=== PATIENT | male | born 1955 | race Hispanic/Latino ===

== ENCOUNTER 2020-11-09 19:16 | Inpatient (IN) | payer OTHER ==
[~2020-11-09] VITALS: Ht 172.7 cm; Wt 112.4 kg
[2020-11-09 20:03] LABS: BASOPHILS % (AUTO) 0.6 % (0.0-5.0); EOSINOPHILS % (AUTO) 2.4 % (0.0-8.0); HEMATOCRIT 26.3 % (42-54); LYMPHOCYTES % (AUTO) 21.8 % (21.0-51.0); MEAN CORPUSCULAR HEMOGLOBIN 21.7 pg (27.0-33.0); MEAN CORPUSCULAR HGB CONC 29.3 g/dL (32.0-36.0); MEAN CORPUSCULAR VOLUME 74.1 fL (79-99); NEUTROPHILS % (AUTO) 66.9 % (40.0-77.0); PLATELET COUNT (AUTO) 311 K/uL (130-400); RED BLOOD CELL COUNT(AUTO) 3.55 MIL/uL (4.50-6.20); WHITE BLOOD COUNT (AUTO) 6.8 K/uL (4.8-10.8)
[2020-11-09 20:08] LABS: CREATININE 2.2 mg/dL (0.5-1.5); POTASSIUM 3.6 mmol/L (3.5-5.1)
[2020-11-09] MEDS ORDERED: PANTOPRAZOLE 40 MG/VIAL ONE (20:09)
[2020-11-09] MEDS ORDERED: 0.9%NACL 100ML 100 ML IV ONE (20:09)
[2020-11-09 20:13] LABS: BILIRUBIN,TOTAL 0.1 mg/dL (0.2-1.0); TOTAL PROTEIN, SERUM 7.2 g/dL (6.0-8.3)
[2020-11-09 20:27] LABS: APPEARANCE,URINE Clear (CLEAR); BILIRUBIN,URINE Negative (NEGATIVE); COLOR,URINE Yellow (YELLOW); GLUCOSE, URINE (UA) >=1000 mg/dL (NEGATIVE); KETONES,URINE Negative (NEGATIVE); LEUKOCYTE ESTERASE ,URINE Negative (NEGATIVE); NITRATE,URINE Negative (NEGATIVE); OCCULT BLOOD,URINE Negative (NEGATIVE); PROTEIN,URINE 300 mg/dL (NEGATIVE); UROBILINOGEN,URINE 0.2 mg/dL (0.2-1.0)
[2020-11-09 20:28] LABS: INR 1.02 (0.85-1.15); PROTHROMBIN TIME 10.9 SEC (9.6-11.6)
[2020-11-09 20:30] LABS: PARTIAL THROMBOPLASTIN TIME 27.4 SEC (26.3-35.5)
[2020-11-09 20:41] LABS: BACTERIA,URINE Rare /HPF (None Seen); MUCUS,URINE Few LPF (None Seen); RBC,URINE 0-1 /HPF (0-1); SQUAMOUS EPITHELIAL CELL,UR Rare /HPF (0-2); WBC,URINE 0-1 /HPF (0-1)
[2020-11-09] MEDS ORDERED: 0.9%NACL 1000ML 1,000 ML IV SCH (21:00)
[2020-11-09] MEDS ORDERED: MORPHINE 2 MG SYG IV PRN (21:00)
[2020-11-09] MEDS ORDERED: DiphenhydrAMINE HCL 50 MG/ML VIAL IV PRN (21:00)
[2020-11-09] MEDS ORDERED: ONDANSETRON 4MG INJ IV PRN (21:00)
[2020-11-09] MEDS ORDERED: PANTOPRAZOLE 40 MG/VIAL IVP SCH (21:00)
[2020-11-09 21:16] LABS: HEMATOCRIT 24.6 % (42-54)
[2020-11-09 21:30] LABS: HEMOGLOBIN A1C 9.1 % (4.0-6.0)
[2020-11-09 23:40] VITALS: BP 143/49
[2020-11-10] MEDS ORDERED: AMLO-258 PO (01:19)
[2020-11-10] MEDS ORDERED: HYDR-4154 PO (01:19)
[2020-11-10] MEDS ORDERED: ATOR40TA71 PO (01:19)
[2020-11-10] MEDS ORDERED: FINA1TAB13 PO (01:19)
[2020-11-10] MEDS ORDERED: EMPA10TA PO (01:19)
[2020-11-10] MEDS ORDERED: FENO145T26 PO (01:19)
[2020-11-10] MEDS ORDERED: GABA300S PO (01:19)
[2020-11-10] MEDS ORDERED: METF-446 PO (01:19)
[2020-11-10] MEDS ORDERED: LOSA100T58 PO (01:19)
[2020-11-10] MEDS ORDERED: TAMS-1 PO (01:19)
[2020-11-10] MEDS ORDERED: OMEP40CA21 PO (01:19)
[2020-11-10 03:03] LABS: HEMATOCRIT 21.9 % (42-54)
[2020-11-10 03:09] LABS: CREATININE 1.9 mg/dL (0.5-1.5); MAGNESIUM 1.9 mg/dL (1.80-2.40); POTASSIUM 3.6 mmol/L (3.5-5.1)
[2020-11-10 03:39] VITALS: BP 138/44
[2020-11-10] MEDS ORDERED: 0.9% NACL 250ML 250 ML IV ONE (03:52)
[2020-11-10] MEDS: INSULIN HUMULIN R 100 UNIT/ML 3ML SQ SCH ×4 (06:07→20:55)
[2020-11-10 07:15] VITALS: BP 141/51
[2020-11-10 08:50] LABS: HEMATOCRIT 26.8 % (42-54)
[2020-11-10] MEDS ORDERED: PANTOPRAZOLE 40MG INJ 80 MG in 0.9%NACL 100ML 100 ML IV SCH (09:00)
[2020-11-10 11:15] VITALS: BP 148/65
[2020-11-10 15:11] LABS: HEMATOCRIT 30.3 % (42-54)
[2020-11-10 16:00] VITALS: BP 176/60
[2020-11-10] MEDS ORDERED: LIDOCAINE HCL-MPF 1% 2ML VIAL IV PRN (18:30)
[2020-11-10] MEDS ORDERED: POTASSIUM CHLORIDE 10% ELIXIR 20 MEQ/15 ML UDCUP PO PRN (18:30)
[2020-11-10] MEDS ORDERED: MAGNESIUM 2GM PREMIX 50ML 50 ML IV PRN (18:30)
[2020-11-10] MEDS ORDERED: POTASSIUM CHLORIDE 20MEQ/100ML 100 ML IV PRN (18:30)
[2020-11-10 20:00] VITALS: BP 177/54
[2020-11-11] VITALS (18 sets, daily range): BP systolic 138–188; BP diastolic 46–79
[2020-11-11 05:24] LABS: BASOPHILS % (AUTO) 0.7 % (0.0-5.0); EOSINOPHILS % (AUTO) 2.6 % (0.0-8.0); LYMPHOCYTES % (AUTO) 20.9 % (21.0-51.0); MEAN CORPUSCULAR HEMOGLOBIN 22.4 pg (27.0-33.0); MEAN CORPUSCULAR VOLUME 74.8 fL (79-99); MONOCYTES % (AUTO) 7.8 % (3.0-13.0); NEUTROPHILS % (AUTO) 67.7 % (40.0-77.0); PLATELET COUNT (AUTO) 239 K/uL (130-400); RED BLOOD CELL COUNT(AUTO) 3.61 MIL/uL (4.50-6.20); RED CELL DISTRIBUTION WIDTH 16.8 % (11.0-15.5); WHITE BLOOD COUNT (AUTO) 5.8 K/uL (4.8-10.8)
[2020-11-11 06:21] LABS: ALANINE AMINOTRANSFERASE 28 U/L (12-78); ALBUMIN 2.5 g/dL (3.5-5.0); ASPARTATE AMINOTRANSFERASE 27 U/L (10-37); CARBON DIOXIDE 28 mmol/L (21-32); CHLORIDE 106 mmol/L (101-111); CREATININE 1.6 mg/dL (0.5-1.5); GLOMERULAR FILTR. RATE CALC 46 mL/min (>60); GLUCOSE,RANDOM 148 mg/dL (70-105); PHOSPHORUS 3.5 mg/dL (2.5-4.9); POTASSIUM 3.4 mmol/L (3.5-5.1); SODIUM SERUM 144 mmol/L (136-145); TOTAL PROTEIN, SERUM 6.2 g/dL (6.0-8.3); UREA NITROGEN, BLOOD 24 mg/dL (7-18)
[2020-11-11 06:26] LABS: BILIRUBIN,TOTAL < 0.1 mg/dL (0.2-1.0)
[2020-11-11] MEDS: INSULIN HUMULIN R 100 UNIT/ML 3ML SQ SCH ×4 (06:37→21:00)
[2020-11-11] MEDS ORDERED: PROPOFOL 10 MG/ML 20ML VIAL IV ONE ×2 (11:25→11:31)
[2020-11-11] MEDS ORDERED: LIDOCAINE HCL 1% 20 ML VIAL ONE (11:25)
[2020-11-11] MEDS ORDERED: PEG 3350/NA SULF,BICARB,CL/KCL 4000 ML SOLN PO SCH (17:00)
[2020-11-11] MEDS: HYDRALAZINE 25MG TABLET PO SCH (17:50)
[2020-11-11] MEDS ORDERED: CLONIDINE HCL 0.1 MG TABLET ONE (20:43)
[2020-11-11] MEDS ORDERED: HYDRALAZINE 20MG/ML VIAL IV PRN (20:45)
[2020-11-11] MEDS ORDERED: CLONIDINE HCL 0.1 MG TABLET PO PRN (20:45)
[2020-11-11] MEDS ORDERED: GABAPENTIN 300 MG CAPSULE PO SCH (21:00)
[2020-11-11] MEDS: KCL 20 MEQ ERTAB PO PRN (23:49)
[2020-11-12] VITALS (17 sets, daily range): BP systolic 137–198; BP diastolic 49–77
[2020-11-12] MEDS: KCL 20 MEQ ERTAB PO PRN (02:54)
[2020-11-12 06:09] LABS: BASOPHILS % (AUTO) 0.7 % (0.0-5.0); EOSINOPHILS % (AUTO) 2.5 % (0.0-8.0); HEMATOCRIT 32.5 % (42-54); LYMPHOCYTES % (AUTO) 19.7 % (21.0-51.0); MEAN CORPUSCULAR HEMOGLOBIN 22.4 pg (27.0-33.0); MEAN CORPUSCULAR HGB CONC 29.8 g/dL (32.0-36.0); MEAN CORPUSCULAR VOLUME 75.1 fL (79-99); MONOCYTES % (AUTO) 6.8 % (3.0-13.0); NEUTROPHILS % (AUTO) 70.1 % (40.0-77.0); PLATELET COUNT (AUTO) 303 K/uL (130-400); RED BLOOD CELL COUNT(AUTO) 4.33 MIL/uL (4.50-6.20)
[2020-11-12 06:18] LABS: ALBUMIN 2.8 g/dL (3.5-5.0); BILIRUBIN,TOTAL 0.3 mg/dL (0.2-1.0); CREATININE 1.6 mg/dL (0.5-1.5); PHOSPHORUS 3.2 mg/dL (2.5-4.9); POTASSIUM 3.9 mmol/L (3.5-5.1); TOTAL PROTEIN, SERUM 6.9 g/dL (6.0-8.3)
[2020-11-12] MEDS: INSULIN HUMULIN R 100 UNIT/ML 3ML SQ SCH ×2 (06:41→11:30)
[2020-11-12] MEDS ORDERED: 0.9%NACL 1000ML 1,000 ML IV ONE (06:51)
[2020-11-12] MEDS ORDERED: PROPOFOL 10 MG/ML 20ML VIAL IV ONE (07:25)
[2020-11-12] MEDS ORDERED: FENOFIBRATE NANOCRYSTALLIZED 145 MG TAB PO SCH (08:00)
[2020-11-12] MEDS ORDERED: ATORVASTATIN 40 MG TABLET PO SCH (09:00)
[2020-11-12] MEDS ORDERED: AMLODIPINE 5 MG TAB PO SCH (09:00)
[2020-11-12] MEDS ORDERED: FINASTERIDE 1 MG PO SCH (09:00)
[2020-11-12] MEDS ORDERED: LOSARTAN 100 MG TABLET PO SCH (09:00)
[2020-11-12] MEDS ORDERED: TAMSULOSIN HCL 0.4 MG CAP.ER.24H PO SCH (09:00)
[2020-11-12] MEDS: HYDRALAZINE 25MG TABLET PO SCH ×2 (09:55→12:43)
== END 2020-11-12 18:30 | disposition home or self-care (01) | DRG 378 ==
LOC: EDH 19:16 → EDHIP 20:55 → 3BH 23:01
PROVIDERS: ADMIT Internal Medicine Critical Care Medicine; ATTEND Internal Medicine Critical Care Medicine
PROC: 0DB68ZX Excision of Stomach, Via Natural or Artificial Opening Endoscopic, Diagnostic (ICD-10-PCS; principal; 2020-11-11)
PROC: 0W3P8ZZ Control Bleeding in Gastrointestinal Tract, Via Natural or Artificial Opening Endoscopic (ICD-10-PCS; 2020-11-11)
PROC: 0DBK8ZZ Excision of Ascending Colon, Via Natural or Artificial Opening Endoscopic (ICD-10-PCS; 2020-11-12)
PROC: 0DBL8ZZ Excision of Transverse Colon, Via Natural or Artificial Opening Endoscopic (ICD-10-PCS; 2020-11-12)
PROC: 0DBM8ZZ Excision of Descending Colon, Via Natural or Artificial Opening Endoscopic (ICD-10-PCS; 2020-11-12)
PROC: 0DBH8ZZ Excision of Cecum, Via Natural or Artificial Opening Endoscopic (ICD-10-PCS; 2020-11-12)
PROC: 30233N1 Transfusion of Nonautologous Red Blood Cells into Peripheral Vein, Percutaneous Approach (ICD-10-PCS; 2020-11-12)
DX: K31.811 Angiodysplasia of stomach and duodenum with bleeding (principal); D62 Acute posthemorrhagic anemia; I50.32 Chronic diastolic (congestive) heart failure; K63.5 Polyp of colon; E11.40 Type 2 diabetes mellitus with diabetic neuropathy, unspecified; E78.5 Hyperlipidemia, unspecified; I11.0 Hypertensive heart disease with heart failure; I25.10 Atherosclerotic heart disease of native coronary artery without angina pectoris; N40.0 Benign prostatic hyperplasia without lower urinary tract symptoms; Z20.822 Contact with and (suspected) exposure to COVID-19; Z79.4 Long term (current) use of insulin; Z95.1 Presence of aortocoronary bypass graft; Z79.899 Other long term (current) drug therapy; K29.71 Gastritis, unspecified, with bleeding
CPT/HCPCS: 36415; 36430; 43239; 43255; 45381; 45385; 45388; 71045; 80048; 80053; 81001; 82270; 82948; 83036; 83690; 83735; 83880; 84100; 84484; 85014; 85018; 85025; 85610; 85730; 86850; 86900; 86901; 86923; 87426; 88305; 88342; 93005; 99291; A4606; C9113; G0378; J2704; J7030; J7050; P9016; U0003

== ENCOUNTER → 2021-12-31 | Outpatient (CLI) | payer OTHER ==
[~2021-12-31] MED LIST: AMLO-258 PO; ATOR40TA71 PO; EMPA10TA PO; FENO145T26 PO; FINA1TAB13 PO; GABA300S PO; HYDR-4154 PO; LOSA100T58 PO; METF-446 PO; OMEP40CA21 PO; TAMS-1 PO
== END | disposition home or self-care (01) ==
LOC: RAH 10:37
PROVIDERS: ATTEND Internal Medicine
DX: N18.9 Chronic kidney disease, unspecified (principal); N28.1 Cyst of kidney, acquired
CPT/HCPCS: 76770

== ENCOUNTER → 2022-01-13 | Outpatient (CLI) | payer OTHER | END | disposition home or self-care (01) | LOC: RAH 10:44 | PROVIDERS: ATTEND Internal Medicine | DX: R06.02 Shortness of breath (principal); R07.89 Other chest pain | CPT/HCPCS: 93970 ==

== ENCOUNTER 2022-08-26 08:57 | Emergency (ER) | payer OTHER ==
[~2022-08-26] VITALS: Ht 167.6 cm; Wt 123.8 kg
[2022-08-26 09:18] LABS: BASOPHILS % (AUTO) 0.8 % (0.0-5.0); EOSINOPHILS % (AUTO) 2.6 % (0.0-8.0); HEMATOCRIT 34.2 % (42-54); LYMPHOCYTES % (AUTO) 25.6 % (21.0-51.0); MEAN CORPUSCULAR HEMOGLOBIN 29.2 pg (27.0-33.0); MEAN CORPUSCULAR HGB CONC 33.9 g/dL (32.0-36.0); MEAN CORPUSCULAR VOLUME 86.1 fL (79-99); MONOCYTES % (AUTO) 6.7 % (3.0-13.0); NEUTROPHILS % (AUTO) 63.9 % (40.0-77.0); PLATELET COUNT (AUTO) 221 K/uL (130-400); RED BLOOD CELL COUNT(AUTO) 3.97 MIL/uL (4.50-6.20); RED CELL DISTRIBUTION WIDTH 13.2 % (11.0-15.5); WHITE BLOOD COUNT (AUTO) 7.7 K/uL (4.8-10.8)
[2022-08-26 09:28] LABS: CREATININE 2.9 mg/dL (0.5-1.5); POTASSIUM 3.8 mmol/L (3.5-5.1)
[2022-08-26 09:32] LABS: APPEARANCE,URINE CLEAR (CLEAR); BILIRUBIN,URINE NEGATIVE (NEGATIVE); COLOR,URINE YELLOW (YELLOW); GLUCOSE, URINE (UA) >=1000 mg/dL (NEGATIVE); KETONES,URINE NEGATIVE (NEGATIVE); LEUKOCYTE ESTERASE ,URINE NEGATIVE Leu/uL (NEGATIVE); NITRATE,URINE NEGATIVE (NEGATIVE); OCCULT BLOOD,URINE TRACE-INTACT (NEGATIVE); PROTEIN,URINE 100 mg/dL (NEGATIVE); UROBILINOGEN,URINE 0.2 mg/dL (0.2-1.0)
[2022-08-26 09:33] LABS: ALBUMIN 2.9 g/dL (3.5-5.0); TOTAL PROTEIN, SERUM 6.8 g/dL (6.0-8.3)
[2022-08-26] MEDS ORDERED: MAGNESIUM 2GM PREMIX 50ML 50 ML IV ONE ×2 (09:41→10:00)
[2022-08-26 09:42] LABS: B-TYPE NATRIURETIC PEPTIDE 119 pg/mL (0-100); BACTERIA,URINE Rare /HPF (None Seen); RBC,URINE None Seen /HPF (0-1); WBC,URINE None Seen /HPF (0-1)
[2022-08-26 09:43] LABS: SQUAMOUS EPITHELIAL CELL,UR 0-2 /HPF (0-2)
[2022-08-26 11:59] VITALS: BP 155/53
== END 2022-08-26 13:32 | disposition home or self-care (01) ==
LOC: EDH 08:57
DX: R06.00 Dyspnea, unspecified (principal); I25.5 Ischemic cardiomyopathy; R10.13 Epigastric pain; E83.42 Hypomagnesemia; I13.0 Hypertensive heart and chronic kidney disease with heart failure and stage 1 through stage 4 chronic kidney disease, or unspecified chronic kidney disease; I50.9 Heart failure, unspecified; E11.22 Type 2 diabetes mellitus with diabetic chronic kidney disease; N18.9 Chronic kidney disease, unspecified; E78.00 Pure hypercholesterolemia, unspecified; Z79.899 Other long term (current) drug therapy; Z98.890 Other specified postprocedural states; Z79.84 Long term (current) use of oral hypoglycemic drugs
CPT/HCPCS: 99285; 96365; 71045; 96366; 83735 ×2; 84484; 80053; 83880; 83690; 85025; 85378; 81001; 36415; 93005; J3475

== ENCOUNTER → 2023-01-09 | Outpatient (CLI) | payer OTHER | END | disposition home or self-care (01) | LOC: RAH 12:50 | PROVIDERS: ATTEND Internal Medicine | DX: M79.89 Other specified soft tissue disorders (principal); R22.33 Localized swelling, mass and lump, upper limb, bilateral | CPT/HCPCS: 93970 ==

== ENCOUNTER 2023-03-06 15:34 | Observation (INO) | payer OTHER ==
[~2023-03-06] VITALS: Ht 167.6 cm; Wt 123.4 kg
[~2023-03-06 15:34] MED LIST changes: -GABA300S PO; +GABA300S3 PO; -LOSA100T58 PO; +LOSA100T59 PO
[2023-03-06 16:00] VITALS: BP 146/70
[2023-03-06 17:05] LABS: HEMATOCRIT 34.6 % (42-54); MEAN CORPUSCULAR HEMOGLOBIN 28.8 pg (27.0-33.0); MEAN CORPUSCULAR HGB CONC 32.9 g/dL (32.0-36.0); MEAN CORPUSCULAR VOLUME 87.4 fL (79-99); RED BLOOD CELL COUNT(AUTO) 3.96 MIL/uL (4.50-6.20); RED CELL DISTRIBUTION WIDTH 13.1 % (11.0-15.5); WHITE BLOOD COUNT (AUTO) 6.4 K/uL (4.8-10.8)
[2023-03-06] MEDS ORDERED: HYDRALAZINE 20MG/ML VIAL IV PRN (17:30)
[2023-03-06 17:37] LABS: CREATININE 2.9 mg/dL (0.5-1.5); POTASSIUM 3.9 mmol/L (3.5-5.1)
[2023-03-06 17:41] LABS: TOTAL PROTEIN, SERUM 7.1 g/dL (6.0-8.3)
[2023-03-06] MEDS: 1/2 NS 1000ML 1,000 ML IV SCH (18:22)
[2023-03-06 18:23] LABS: HEMOGLOBIN A1C 9.4 % (4.0-6.0)
[2023-03-06] MEDS ORDERED: AMLO-257 PO (19:39)
[2023-03-06] MEDS ORDERED: EPLE50TA9 PO (19:39)
[2023-03-06] MEDS ORDERED: FENO48TA10 PO (19:39)
[2023-03-06] MEDS ORDERED: ERGO500093 PO (19:39)
[2023-03-06] MEDS ORDERED: FOLI0.8T22 PO (19:39)
[2023-03-06] MEDS ORDERED: GABA-529 PO (19:39)
[2023-03-06] MEDS ORDERED: ASPI-1026 PO (19:39)
[2023-03-06] MEDS ORDERED: TORS20TA4 PO (19:39)
[2023-03-06] MEDS ORDERED: HYDR100T27 PO (19:39)
[2023-03-06] MEDS ORDERED: SACU1TAB7 PO (19:39)
[2023-03-06] MEDS ORDERED: CARV25TA77 PO (19:43)
[2023-03-06 20:00] VITALS: BP 153/70
[2023-03-06] MEDS: INSULIN HUMULIN R 100 UNIT/ML 3ML SQ SCH (20:10)
[2023-03-06] MEDS: TORSEMIDE 20 MG TAB PO SCH (20:11)
[2023-03-06] MEDS: CARVEDILOL 25 MG TABLET PO SCH (20:12)
[2023-03-06] MEDS: HYDRALAZINE 25MG TABLET PO SCH (20:16)
[2023-03-06] MEDS ORDERED: SACUBITRIL/VALSARTAN 1 EACH TABLET PO SCH (21:00)
[2023-03-06] MEDS ORDERED: INSULIN GLARGINE 100 UNITS/ML 10 ML VIAL SQ SCH (21:00)
[2023-03-06] MEDS ORDERED: FUROSEMIDE 20MG VIAL IV ONE (21:00)
[2023-03-06 23:44] VITALS: BP 154/62
[2023-03-07 03:41] VITALS: BP 132/56
[2023-03-07 04:06] LABS: BASOPHILS % (AUTO) 0.7 % (0.0-5.0); EOSINOPHILS % (AUTO) 2.8 % (0.0-8.0); HEMATOCRIT 33.1 % (42-54); LYMPHOCYTES % (AUTO) 22.1 % (21.0-51.0); MEAN CORPUSCULAR HEMOGLOBIN 28.8 pg (27.0-33.0); MEAN CORPUSCULAR HGB CONC 32.6 g/dL (32.0-36.0); MEAN CORPUSCULAR VOLUME 88.3 fL (79-99); PLATELET COUNT (AUTO) 207 K/uL (130-400); RED BLOOD CELL COUNT(AUTO) 3.75 MIL/uL (4.50-6.20); WHITE BLOOD COUNT (AUTO) 7.2 K/uL (4.8-10.8)
[2023-03-07 04:24] LABS: ALBUMIN 2.9 g/dL (3.5-5.0); CREATININE 2.8 mg/dL (0.5-1.5); MAGNESIUM 1.9 mg/dL (1.80-2.40); POTASSIUM 3.5 mmol/L (3.5-5.1); TOTAL PROTEIN, SERUM 6.8 g/dL (6.0-8.3)
[2023-03-07] MEDS: 1/2 NS 1000ML 1,000 ML IV SCH (05:20)
[2023-03-07] MEDS: INSULIN HUMULIN R 100 UNIT/ML 3ML SQ SCH ×2 (06:04→11:44)
[2023-03-07] MEDS: HYDRALAZINE 25MG TABLET PO SCH (08:21)
[2023-03-07] MEDS: CARVEDILOL 25 MG TABLET PO SCH (08:21)
[2023-03-07] MEDS: TORSEMIDE 20 MG TAB PO SCH (08:22)
[2023-03-07 08:55] VITALS: BP 154/68
[2023-03-07] MEDS ORDERED: AMLODIPINE 5 MG TAB PO SCH (09:00)
[2023-03-07] MEDS ORDERED: FENOFIBRATE NANOCRYSTALLIZED 48 MG TAB PO SCH (09:00)
[2023-03-07] MEDS ORDERED: EPLERENONE 50 MG PO SCH (09:00)
[2023-03-07] MEDS ORDERED: ASPIRIN 81MG CHEW TAB PO SCH (09:00)
[2023-03-07] MEDS ORDERED: Vitamin B Complex/Vit C/Folic Acid PO SCH (09:00)
[2023-03-07] MEDS ORDERED: PANTOPRAZOLE 40 MG/VIAL IVP SCH (09:00)
[2023-03-07] MEDS ORDERED: CLOPIDOGREL 75MG TAB PO SCH (09:00)
[2023-03-07] MEDS ORDERED: SACUBITRIL/VALSARTAN 1 EACH TABLET PO SCH (09:00)
[2023-03-07] MEDS ORDERED: TAMSULOSIN HCL 0.4 MG CAP.ER.24H PO SCH (09:00)
[2023-03-07] MEDS ORDERED: LACTULOSE 20 GM/30 ML UDCUP PO SCH (10:00)
[2023-03-07 11:38] VITALS: BP 150/71
== END 2023-03-07 11:40 | disposition home or self-care (01) ==
LOC: EDH 15:34 → DIRECT 15:35 → 2AH 16:06
PROVIDERS: ADMIT Internal Medicine Cardiovascular Disease; ATTEND Internal Medicine Cardiovascular Disease
DX: N17.9 Acute kidney failure, unspecified (principal); I12.9 Hypertensive chronic kidney disease with stage 1 through stage 4 chronic kidney disease, or unspecified chronic kidney disease; E11.22 Type 2 diabetes mellitus with diabetic chronic kidney disease; N18.4 Chronic kidney disease, stage 4 (severe); E11.51 Type 2 diabetes mellitus with diabetic peripheral angiopathy without gangrene; I25.10 Atherosclerotic heart disease of native coronary artery without angina pectoris; E78.5 Hyperlipidemia, unspecified; E78.00 Pure hypercholesterolemia, unspecified; E66.01 Morbid (severe) obesity due to excess calories; Z79.82 Long term (current) use of aspirin; Z79.899 Other long term (current) drug therapy; Z87.891 Personal history of nicotine dependence; Z95.1 Presence of aortocoronary bypass graft
CPT/HCPCS: 96374; 96361 ×2; 83036; 84443; 80053 ×2; 85027; 82948 ×4; 36415 ×2; 96375; 83735; 85025; G0378 ×20; G0379; J1940; J1815 ×3; C9113

== ENCOUNTER 2024-06-24 19:17 | Emergency (ER) | payer OTHER ==
[~2024-06-24] VITALS: Ht 170.2 cm; Wt 122.5 kg
[~2024-06-24 19:17] MED LIST changes: -AMLO-258 PO; +AMLO2.5T4 PO; +ASPI-1005 PO; +CARV25TA77 PO; +CHOL2000 PO; +CLOP-31 PO; -FENO145T26 PO; +FERR325T29 PO; -FINA1TAB13 PO; +FOLI0.8T22 PO; +FURO40TA5 PO; +GABA-529 PO; -GABA300S3 PO; -HYDR-4154 PO; +HYDR100T15 PO; +INSU300I SQ; -LOSA100T59 PO; -METF-446 PO; +METO5TAB7 PO; -OMEP40CA21 PO; +SACU1TAB7 PO; +SODI650T PO; +[UNRECOGNIZED DRUG - CODE] PO
[2024-06-24 20:06] LABS: BASOPHILS # (AUTO) 0.04 K/uL (0.00-0.20); BASOPHILS % (AUTO) 0.6 % (0.0-5.0); EOSINOPHILS # (AUTO) 0.05 K/uL (0.00-0.70); EOSINOPHILS % (AUTO) 0.7 % (0.0-8.0); HEMATOCRIT 34.6 % (42-54); IMMATURE GRANULOCYTE ABSOLUTE 0.02 K/uL (0-1); LYMPHOCYTES # (AUTO) 0.5 K/uL (1.0-4.8); LYMPHOCYTES % (AUTO) 6.9 % (21.0-51.0); MEAN CORPUSCULAR HEMOGLOBIN 30.1 pg (27.0-33.0); MEAN CORPUSCULAR HGB CONC 34.1 g/dL (32.0-36.0); MEAN CORPUSCULAR VOLUME 88.3 fL (79-99); MONOCYTES # (AUTO) 0.5 K/uL (0.1-1.0); MONOCYTES % (AUTO) 7.2 % (3.0-13.0); NEUTROPHILS # (AUTO) 5.7 K/uL (1.8-7.7); NEUTROPHILS % (AUTO) 84.3 % (40.0-77.0); PLATELET COUNT (AUTO) 155 K/uL (130-400); RED BLOOD CELL COUNT(AUTO) 3.92 MIL/uL (4.50-6.20); RED CELL DISTRIBUTION WIDTH 13.7 % (11.0-15.5); WHITE BLOOD COUNT (AUTO) 6.8 K/uL (4.8-10.8)
[2024-06-24] MEDS: 0.9% NACL 250ML 250 ML IV ONE (20:07)
[2024-06-24] MEDS: acetaMINOPHEN 500 MG TABLET PO ONE (20:08)
[2024-06-24 20:28] LABS: CREATININE 3.6 mg/dL (0.5-1.3); POTASSIUM 3.8 mmol/L (3.5-5.1)
[2024-06-24 20:33] LABS: COVID19 (SARS ANTIGEN RAPID) PRESUMPTIVE NEGATIVE (NEGATIVE); INFLUENZA TYPE A Negative For Type A (NEGATIVE); INFLUENZA TYPE B Negative For Type B (NEGATIVE)
[2024-06-24 20:36] LABS: ALBUMIN 3.3 g/dL (3.5-5.0); BILIRUBIN,TOTAL 0.4 mg/dL (0.2-1.0); TOTAL PROTEIN, SERUM 7.5 g/dL (6.0-8.3)
[2024-06-24 20:40] VITALS: TEMP 99
[2024-06-24 22:22] LABS: ADD UA MICROSCOPIC YES; APPEARANCE,URINE CLEAR (CLEAR); BILIRUBIN,URINE NEGATIVE (NEGATIVE); COLOR,URINE YELLOW (YELLOW); GLUCOSE, URINE (UA) >=1000 mg/dL (NEGATIVE); KETONES,URINE NEGATIVE (NEGATIVE); LEUKOCYTE ESTERASE ,URINE NEGATIVE Leu/uL (NEGATIVE); NITRATE,URINE NEGATIVE (NEGATIVE); OCCULT BLOOD,URINE MODERATE (NEGATIVE); PH,URINE 6.5 (5.0-8.0); PROTEIN,URINE 600 mg/dL (NEGATIVE); UROBILINOGEN,URINE 0.2 mg/dL (0.2-1.0)
[2024-06-24 22:24] LABS: MUCUS,URINE RARE LPF (None Seen)
[2024-06-24] MEDS ORDERED: AMOX-426 PO (23:03)
[2024-06-24 23:12] VITALS: BP 134/53; PULSE 70; RESP 18; O2SAT 96
== END 2024-06-24 23:13 | disposition home or self-care (01) ==
LOC: EDH 19:17
DX: I13.2 Hypertensive heart and chronic kidney disease with heart failure and with stage 5 chronic kidney disease, or end stage renal disease (principal); E11.22 Type 2 diabetes mellitus with diabetic chronic kidney disease; N18.6 End stage renal disease; R50.9 Fever, unspecified; K86.1 Other chronic pancreatitis; B34.9 Viral infection, unspecified; F17.200 Nicotine dependence, unspecified, uncomplicated; I25.10 Atherosclerotic heart disease of native coronary artery without angina pectoris; J44.9 Chronic obstructive pulmonary disease, unspecified; I50.9 Heart failure, unspecified; Z20.822 Contact with and (suspected) exposure to COVID-19; Z79.02 Long term (current) use of antithrombotics/antiplatelets; Z79.82 Long term (current) use of aspirin; Z79.84 Long term (current) use of oral hypoglycemic drugs; Z99.2 Dependence on renal dialysis; Z79.899 Other long term (current) drug therapy; Z95.1 Presence of aortocoronary bypass graft
CPT/HCPCS: 99284; 71045; 87426; 80053; 85025; 87040; 87086; 87186; 87804 ×2; 83605; 81001; 36415; J7050

== ENCOUNTER → 2024-09-05 | Outpatient (CLI) | payer OTHER ==
[~2024-09-05] MED LIST changes: +AMLO-257 PO; -AMLO2.5T4 PO; -CARV25TA77 PO; -CLOP-31 PO; +CLOP75TA32 PO; +DOXY100T2 PO; -FERR325T29 PO; -FURO40TA5 PO; -HYDR100T15 PO; +HYDR50TA37 PO; +INSU100V3 IJ; +METO25 PO; -METO5TAB7 PO; -SODI650T PO
[2024-09-05 10:15] LABS: CREATININE 5.2 mg/dL (0.5-1.3)
== END | disposition home or self-care (01) ==
LOC: LAB 09:00
PROVIDERS: ATTEND Otolaryngology Plastic Surgery within the Head & Neck
DX: H90.3 Sensorineural hearing loss, bilateral (principal)
CPT/HCPCS: 36415; 82565; 84520